=== PATIENT | female | born 1995 | race African-American/Black ===

== ENCOUNTER 2023-02-05 12:07 | Outpatient (CLI) | payer MEDICAID, SELFPAY ==
[2023-02-05 15:34] LABS: Chlamydia DNA Amplified* NOT DETECTED (No Detected); GC DNA Amplified* NOT DETECTED (No Detected)
== END 2023-02-05 12:08 | disposition home or self-care (01) ==
PROVIDERS: PCP Family Medicine; Visit Provider Registered Nurse
DX: Z11.3 Encounter for screening for infections with a predominantly sexual mode of transmission (principal)
CPT/HCPCS: 87491; 87591